=== PATIENT | male | born 1980 | race Caucasian/White ===

== ENCOUNTER 2023-10-04 08:48 | Inpatient (IN) | payer MEDICAID ==
[~2023-10-04] VITALS: Ht 160 cm; Wt 67.5 kg
[2023-10-04] MEDS: normal saline 1000ML IV soln IVB ONE (09:22)
[2023-10-04] MEDS: ondansetron/PF 4mg/2ml inj IV ONE (09:23)
[2023-10-04 09:46] LABS: ALANINE AMINOTRANSFERASE 70 U/L (12-78); ALBUMIN/GLOBULIN RATIO 1.1 (1.1-1.5); ALKALINE PHOSPHATASE 143 IU/L (46-116); ANION GAP 10 (8-16); ASPARTATE AMINO TRANSFERASE 17 U/L (10-37); BILIRUBIN,TOTAL 0.4 MG/DL (0.1-1.0); BLOOD UREA NITROGEN 19 MG/DL (7-18); BUN/CREATININE RATIO 17.8 (10.0-20.0); CALCIUM 10.7 MG/DL (8.5-10.1); CHLORIDE 96 MMOL/L (99-107); CREATININE 1.07 MG/DL (0.60-1.10); GLUCOSE 352 MG/DL (70-104); LIPASE 139 U/L (16-77); POTASSIUM 4.8 MMOL/L (3.5-5.1); SODIUM 132 MMOL/L (135-145); TOTAL CARBON DIOXIDE 25.6 MMOL/L (24-32); TOTAL PROTEIN 9.6 G/DL (6.4-8.2); eCRCL 74 ML/MIN; eGFR 75 ML/MIN
[2023-10-04] MEDS ORDERED: iohexol 300mg/ml 100ml inj. ONE (10:01)
[2023-10-04 10:21] LABS: BILIRUBIN,URINE NEGATIVE (Neg); CLARITY,URINE CLEAR (Clear); COLOR,URINE YELLOW (Yellow); GLUCOSE, URINE >=1000 mg/dl (Neg); KETONES,URINE NEGATIVE (Neg); LEUKOCYTE ESTERASE ,URINE NEGATIVE (Neg); NITRITES, URINE NEGATIVE (Neg); OCCULT BLOOD,URINE NEGATIVE (Neg); PH,URINE 5.5 (4.8-8.0); PROTEIN,URINE NEGATIVE (Neg); UROBILINOGEN,URINE 0.2 E.U/dL (0.2-1.0)
[2023-10-04 10:24] LABS: EOSINOPHILS # (AUTO) 0.3 X10'3 (0-0.9); HEMOGLOBIN 16.5 g/dl (14.0-17.9); MONOCYTES # (AUTO) 0.6 X10'3 (0-0.9); MONOCYTES % (AUTO) 3.8 % (2-12)
[2023-10-04 10:25] LABS: BASOPHILS % (AUTO) 0.3 % (0-1); EOSINOPHILS % (AUTO) 1.7 % (0-6); HEMATOCRIT 48.1 % (42.0-52.0); LYMPHOCYTES # (AUTO) 1.3 X10'3 (1.1-4.8); LYMPHOCYTES % (AUTO) 7.9 % (21-51); MEAN CORPUSCULAR HEMOGLOBIN 30.8 PG (27.0-31.0); MEAN CORPUSCULAR HGB CONC 34.4 g/dL (33.0-36.5); MEAN CORPUSCULAR VOLUME 89.7 FL (78-98); MEAN PLATELET VOLUME 9.3 FL (7.4-10.4); NEUTROPHILS # (AUTO) 14.6 X10'3 (1.8-7.7); NEUTROPHILS % (AUTO) 86.3 % (42-75); PLATELET COUNT 342 X10'3 (140-440); RED BLOOD COUNT 5.36 X10'6 (4.70-6.10); RED CELL DISTRIBUTION WIDTH 12.9 % (11.5-14.5)
[2023-10-04 10:26] LABS: UA COLLECTION TYPE URINAL
[2023-10-04 10:32] LABS: BACTERIA,URINE NONE SEEN /HPF (Neg); RBC,URINE 0-2 /HPF (0-2); SQUAMOUS EPITHELIAL CELL,UR FEW /LPF (FEW); WBC,URINE NONE SEEN /HPF (0-4)
[2023-10-04] MEDS ORDERED: ciprofloxacin lact 400MG/200ML 200 ML IV SCH (11:05)
[2023-10-04] MEDS ORDERED: insulin Lispro (HumaLOG) vial - multi-dose SQ ONE (11:05)
[2023-10-04] MEDS: normal saline 1000ml 1,000 ML IV SCH ×2 (11:15→14:15)
[2023-10-04] MEDS ORDERED: acetaminophen 325mg tablet PO PRN ×2 (11:15)
[2023-10-04] MEDS ORDERED: magnesium hydroxide 30ml (MOM) UD suspension PO PRN (11:15)
[2023-10-04] MEDS ORDERED: potassium Cl 20 mEq SR tablet PO PRN ×2 (11:15)
[2023-10-04] MEDS ORDERED: ondansetron/PF 4mg/2ml inj IV PRN (11:15)
[2023-10-04] MEDS ORDERED: magnesium 4gm in 100ml NS 100 ML IV PRN (11:15)
[2023-10-04] MEDS ORDERED: magnesium 2GM in 50ml NS 50 ML IV PRN (11:15)
[2023-10-04] MEDS ORDERED: magnesium Cl slow-release 64mg tablet PO PRN (11:15)
[2023-10-04] MEDS ORDERED: mag hydrox/Alum hydrox/simeth 30ml oral suspension PO PRN (11:15)
[2023-10-04] MEDS ORDERED: potassium Cl 40MEQ/1/2NS 520ml 520 ML IV PRN (11:15)
[2023-10-04] MEDS: MESSAGE TO NURSING PO ONE (11:17)
[2023-10-04] MEDS: pantoprazole 40 MG vial IV SCH (11:20)
[2023-10-04] MEDS: metroNIDAZOLE-Flagyl 500mg/NS 100 ML IV ONE (11:22)
[2023-10-04] MEDS ORDERED: BUPR100T13 PO (12:20)
[2023-10-04 13:22] LABS: HEMOGLOBIN A1C 9.6 % (4.5-6.2)
[2023-10-04] MEDS: ciprofloxacin lact 400MG/200ML 200 ML IV ONE (13:27)
[2023-10-04] MEDS: INSULIN LISPRO 100 UNIT/ML INSULN.PEN MULTI-DOSE SQ ONE (13:39)
[2023-10-04] MEDS ORDERED: DEXTROSE 15 GM of carb/4 tabs (each vial/BOTTLE has 4 tablets) PO PRN ×2 (13:55)
[2023-10-04] MEDS ORDERED: glucagon, human recombinant 1mg kit SUBCUT PRN (13:55)
[2023-10-04] MEDS ORDERED: dextrose 50%-water 50ml dispensing syringe IV PRN ×2 (13:55)
[2023-10-04] MEDS: pantoprazole 40mg Tablet.DR PO SCH (14:05)
[2023-10-04] MEDS: morphine 2 MG/ML inj. syringe IV PRN ×2 (14:23→21:48)
[2023-10-04 14:43] LABS: CHOL/HDL RATIO 6.4 (0.00-4.99); CHOLESTEROL 262 MG/DL (0-200); HDL CHOLESTEROL 41 MG/DL (35-60); LDL CHOLESTEROL 159 MG/DL (50-100); TRIGLYCERIDES 328 MG/DL (20-135)
[2023-10-04] MEDS: levoFLOXACIN-Levaquin 750MG/D5 150 ML IV SCH (14:48)
[2023-10-04] MEDS: INSULIN LISPRO 100 UNIT/ML INSULN.PEN MULTI-DOSE SQ SCH ×2 (17:53→18:00)
[2023-10-04 18:15] VITALS: BP 145/99; PULSE 80; RESP 12; TEMP 98.4; O2SAT 97
[2023-10-04 20:00] VITALS: RESP 18; O2SAT 98
[2023-10-04] MEDS: K and/or MAG REPLACEMENT MC SCH (20:00)
[2023-10-04] MEDS: metroNIDAZOLE-Flagyl 500mg/NS 100 ML IV SCH (20:35)
[2023-10-04] MEDS: insulin glargine (Lantus) pen - multi-dose SQ SCH (20:47)
[2023-10-04 22:00] VITALS: BP 138/59; PULSE 78; RESP 18; TEMP 98.1; O2SAT 99
[2023-10-04] MEDS ORDERED: METF-1203 PO (22:12)
[2023-10-04] MEDS ORDERED: PRAZ1CAP5 PO (22:12)
[2023-10-04] MEDS ORDERED: CLON0.5T4 (22:12)
[2023-10-04] MEDS ORDERED: MONT-40 PO (22:12)
[2023-10-04] MEDS ORDERED: SERT-434 PO (22:12)
[2023-10-04] MEDS ORDERED: MIRT-88 PO (22:12)
[2023-10-04] MEDS ORDERED: ROSU10TA28 PO (22:13)
[2023-10-04] MEDS ORDERED: BUPR-317 PO (22:29)
[2023-10-05] MEDS: temazepam 15mg capsule PO ONE (00:24)
[2023-10-05] MEDS: mirtazapine 15mg tablet PO ONE (00:25)
[2023-10-05] MEDS: prazosin 1mg capsule PO ONE (00:28)
[2023-10-05] MEDS: ROSUVASTATIN CALCIUM 5 MG TABLET PO ONE (00:30)
[2023-10-05 02:00] VITALS: BP 115/57; PULSE 92; RESP 19; TEMP 97; O2SAT 100
[2023-10-05 04:00] VITALS: BP 129/59; PULSE 78; RESP 20; TEMP 98.2; O2SAT 100
[2023-10-05 06:00] VITALS: BP 135/82; PULSE 77; RESP 18; TEMP 97.8; O2SAT 94
[2023-10-05 07:16] LABS: BASOPHILS # (AUTO) 0.1 X10'3 (0-0.2); HEMOGLOBIN 15.7 g/dl (14.0-17.9); LYMPHOCYTES # (AUTO) 1.9 X10'3 (1.1-4.8); MONOCYTES # (AUTO) 0.6 X10'3 (0-0.9); NEUTROPHILS % (AUTO) 70.3 % (42-75)
[2023-10-05 07:18] LABS: BASOPHILS % (AUTO) 0.6 % (0-1); EOSINOPHILS # (AUTO) 0.7 X10'3 (0-0.9); HEMATOCRIT 44.8 % (42.0-52.0); LYMPHOCYTES % (AUTO) 17.7 % (21-51); MEAN CORPUSCULAR HEMOGLOBIN 31.1 PG (27.0-31.0); MEAN CORPUSCULAR HGB CONC 35.1 g/dL (33.0-36.5); MEAN CORPUSCULAR VOLUME 88.5 FL (78-98); MEAN PLATELET VOLUME 9.3 FL (7.4-10.4); MONOCYTES % (AUTO) 5.4 % (2-12); NEUTROPHILS # (AUTO) 7.6 X10'3 (1.8-7.7); PLATELET COUNT 308 X10'3 (140-440); RED BLOOD COUNT 5.06 X10'6 (4.70-6.10); RED CELL DISTRIBUTION WIDTH 12.8 % (11.5-14.5); WHITE BLOOD COUNT 10.8 X10'3 (4.5-11.0)
[2023-10-05 07:34] LABS: ALANINE AMINOTRANSFERASE 50 U/L (12-78); ALBUMIN 3.6 G/DL (3.4-5.0); ALBUMIN/GLOBULIN RATIO 1.1 (1.1-1.5); ALKALINE PHOSPHATASE 110 IU/L (46-116); ANION GAP 8 (8-16); ASPARTATE AMINO TRANSFERASE 19 U/L (10-37); BILIRUBIN,TOTAL 0.7 MG/DL (0.1-1.0); BLOOD UREA NITROGEN 15 MG/DL (7-18); CALCIUM 8.3 MG/DL (8.5-10.1); CHLORIDE 105 MMOL/L (99-107); GLUCOSE 231 MG/DL (70-104); MAGNESIUM 1.8 MG/DL (1.5-2.4); POTASSIUM 3.7 MMOL/L (3.5-5.1); SODIUM 137 MMOL/L (135-145); TOTAL CARBON DIOXIDE 23.8 MMOL/L (24-32); eCRCL 76 ML/MIN; eGFR 81 ML/MIN
[2023-10-05] MEDS ORDERED: non-formulary drug (Bupropion HCl (Bupropion Xl) 1 TAB) PO SCH (08:00)
[2023-10-05] MEDS: sertraline 50mg tablet PO SCH (08:08)
[2023-10-05] MEDS: buPROPion SR 150mg tablet PO SCH (08:09)
[2023-10-05] MEDS: clonazePAM 0.5mg tablet PO SCH (10:46)
[2023-10-05] MEDS: HYDROcodone/acetaminophen 5mg/325mg tablet PO PRN (10:48)
[2023-10-05 11:00] VITALS: BP 93/49; PULSE 85; RESP 12; TEMP 98.7; O2SAT 98
[2023-10-05] MEDS ORDERED: LANTUS SQ (12:11)
[2023-10-05] MEDS ORDERED: LEVO-65 PO (12:18)
[2023-10-05] MEDS ORDERED: METR-159 PO (12:19)
[2023-10-05] MEDS ORDERED: atorvastatin 20mg tablet PO SCH (21:00)
[2023-10-05] MEDS ORDERED: prazosin 1mg capsule PO SCH (21:00)
[2023-10-05] MEDS ORDERED: insulin glargine (Lantus) pen - multi-dose SQ SCH (21:00)
[2023-10-05] MEDS ORDERED: ROSUVASTATIN CALCIUM 5 MG TABLET PO SCH (21:00)
[2023-10-05] MEDS ORDERED: mirtazapine 15mg tablet PO SCH (21:00)
== END 2023-10-05 15:14 | disposition home or self-care (01) | DRG 249 ==
LOC: ER 08:48 → ED HOLD 11:18 → UNDOADMIN 11:18 → ED HOLD 11:36 → PCU 3S 18:07 → ED HOLD 18:07
PROVIDERS: ADMIT Family Medicine; ATTEND Family Medicine
DX: K52.9 Noninfective gastroenteritis and colitis, unspecified (principal); K85.90 Acute pancreatitis without necrosis or infection, unspecified; D72.829 Elevated white blood cell count, unspecified; F41.9 Anxiety disorder, unspecified; K62.89 Other specified diseases of anus and rectum; E11.9 Type 2 diabetes mellitus without complications; Z79.899 Other long term (current) drug therapy; Z87.891 Personal history of nicotine dependence
CPT/HCPCS: 36415; 74178; 80053; 80061; 81001; 82948; 83036; 83605; 83690; 83735; 85025; 85651; 87040; 87081; 99285; C9113; G0378; J0744; J1815; J1956; J2270; J2405; J3490; J7030; Q9967

== ENCOUNTER 2024-05-31 14:57 | Emergency (ER) | payer MEDICAID ==
[~2024-05-31] VITALS: Ht 160 cm; Wt 73.9 kg
[~2024-05-31 14:57] MED LIST: BUPR-561 PO; CLON0.5T4; LANTUS SQ; METR-159 PO; MIRT-88 PO; MONT-40 PO; PRAZ1CAP5 PO; ROSU10TA72 PO; SERT-434 PO
[2024-05-31 16:00] LABS: EOSINOPHILS # (AUTO) 0.1 X10'3 (0-0.9); LYMPHOCYTES # (AUTO) 1.1 X10'3 (1.1-4.8); MONOCYTES # (AUTO) 0.2 X10'3 (0-0.9)
[2024-05-31 16:02] LABS: BASOPHILS # (AUTO) 0.1 X10'3 (0-0.2); BASOPHILS % (AUTO) 0.6 % (0-1); EOSINOPHILS % (AUTO) 0.5 % (0-6); HEMATOCRIT 51.1 % (42.0-52.0); LYMPHOCYTES % (AUTO) 7.9 % (21-51); MEAN CORPUSCULAR HGB CONC 35.4 g/dL (33.0-36.5); MEAN CORPUSCULAR VOLUME 90.3 FL (78-98); MEAN PLATELET VOLUME 8.6 FL (7.4-10.4); MONOCYTES % (AUTO) 1.3 % (2-12); NEUTROPHILS % (AUTO) 89.7 % (42-75); PLATELET COUNT 362 X10'3 (140-440); RED BLOOD COUNT 5.66 X10'6 (4.70-6.10); RED CELL DISTRIBUTION WIDTH 13.2 % (11.5-14.5); WHITE BLOOD COUNT 14.5 X10'3 (4.5-11.0)
[2024-05-31 16:23] LABS: ALANINE AMINOTRANSFERASE 119 U/L (12-78); ALBUMIN 4.7 G/DL (3.4-5.0); ALBUMIN/GLOBULIN RATIO 1.2 (1.1-1.5); ALKALINE PHOSPHATASE 114 IU/L (46-116); ANION GAP 11 (8-16); ASPARTATE AMINO TRANSFERASE 50 U/L (10-37); BILIRUBIN,TOTAL 0.9 MG/DL (0.1-1.0); BLOOD UREA NITROGEN 16 MG/DL (7-18); CALCIUM 9.4 MG/DL (8.5-10.1); CHLORIDE 98 MMOL/L (99-107); GLUCOSE 148 MG/DL (70-104); LIPASE 52 U/L (16-77); POTASSIUM 4.3 MMOL/L (3.5-5.1); SODIUM 133 MMOL/L (135-145); TOTAL CARBON DIOXIDE 24.2 MMOL/L (24-32); TOTAL PROTEIN 8.7 G/DL (6.4-8.2); eCRCL 75 ML/MIN; eGFR 81 ML/MIN
[2024-05-31 16:25] LABS: HEMOGLOBIN 18.1 g/dl (14.0-17.9)
[2024-05-31 18:41] LABS: BILIRUBIN,URINE NEGATIVE (Neg); CLARITY,URINE CLEAR (Clear); COLOR,URINE YELLOW (Yellow); GLUCOSE, URINE 500 mg/dl (Neg); KETONES,URINE 40 mg/dl (Neg); LEUKOCYTE ESTERASE ,URINE NEGATIVE (Neg); NITRITES, URINE NEGATIVE (Neg); OCCULT BLOOD,URINE NEGATIVE (Neg); PH,URINE 8.5 (4.8-8.0); PROTEIN,URINE NEGATIVE (Neg); UROBILINOGEN,URINE 0.2 E.U/dL (0.2-1.0)
[2024-05-31] MEDS: ondansetron/PF 4mg/2ml inj IV ONE (18:41)
[2024-05-31] MEDS: normal saline 1000ML IV soln IVB ONE (18:41)
[2024-05-31] MEDS: ketorolac trometh 15mg/ml vial 15 MG/ML ML IV ONE (18:42)
[2024-05-31 18:44] LABS: UA COLLECTION TYPE VOIDED
[2024-05-31 21:34] VITALS: TEMP 97.9
[2024-05-31] MEDS: proCHLORperazine 10 MG/2 ml inj IV ONE (21:35)
[2024-05-31 21:47] VITALS: BP 11/89; PULSE 114; RESP 16; O2SAT 98
[2024-05-31] MEDS ORDERED: ONDA-245 PO (21:51)
== END 2024-05-31 21:53 | disposition home or self-care (01) ==
LOC: ER 14:58
DX: K29.70 Gastritis, unspecified, without bleeding (principal); E11.9 Type 2 diabetes mellitus without complications; F17.210 Nicotine dependence, cigarettes, uncomplicated; Y90.9 Presence of alcohol in blood, level not specified
CPT/HCPCS: 80053; 81003; 82948; 83690; 85025; 87502; 87503; 96361; 96374; 96375; 99285; J0780; J1885; J2405; J7030